=== PATIENT | male | born 1940 | race Caucasian/White ===

== ENCOUNTER 2017-03-03 00:25 | Day surgery (SDC) | payer MEDICARE, OTHER ==
[2017-03-03] VITALS (12 sets, daily range): BP systolic 105–129; BP diastolic 48–67; PULSE 51–67; RESP 14–16; O2SAT 94–99
[~2017-03-03 00:25] MED LIST: ACET325T51 PO; ASPI-973 PO; ATOR80TA PO; CARV6.252 PO; CHOL10008 PO; CLOP75TA3 PO; ETAN50PE SQ; HYDR-4003 PO; ISOS30TA4 PO; LEVE250T4 PO; MIRT15TA6 PO; NITR0.4T6 SL; PANT40TA3 PO; TAMS0.4C98 PO
[2017-03-03 10:24] LABS: BASOPHILS % (AUTO) 0.4 % (0-3); EOSINOPHILS % (AUTO) 6.1 % (0-5); MONOCYTES % (AUTO) 15.5 % (4-12); Mean Corpuscular Hemoglobin 30.7 pg (27.0-35.0); Mean Corpuscular Volume 93.4 fL (81-100); NEUTROPHILS % (AUTO) 33.7 % (40-74); Platelet Count 193 bil/L (150-400)
[2017-03-03] MEDS ORDERED: Heparin 1,000 Units/500 mL NS Premix IV ONE (10:37)
[2017-03-03] MEDS ORDERED: Heparin 10,000 Unit/1,000 mL NS Premix IV ONE (10:37)
[2017-03-03 10:39] LABS: INR 1.02 ratio
--- NOTE | 2017-03-03 10:51 | NUR ---
0930 admit note: Patient ambulates into department. 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 IV's X 2 started and labs drawn. He is prepped for procedure.
[2017-03-03] MEDS ORDERED: diphenhydrAMINE 50 mg Capsule PO ONE ×2 (11:17→11:20)
[2017-03-03] MEDS ORDERED: Hydrocortisone 50 mg/mL 2 mL Inj ONE (11:17)
[2017-03-03] MEDS ORDERED: Hydrocortisone 50 mg/mL 2 mL Inj IVPUSH ONE (11:20)
[2017-03-03] MEDS ORDERED: fentaNYL-PF 50 mCg/mL 2 mL Inj ONE ×2 (11:59→12:39)
[2017-03-03] MEDS ORDERED: hydrALAZINE 20 mg/mL Inj ONE (12:04)
[2017-03-03] MEDS ORDERED: Heparin 1,000 Unit/mL 10 mL Inj ONE (12:41)
[2017-03-03] MEDS ORDERED: 0.9% Sodium Chloride 250 ML IV PRN (13:51)
[2017-03-03] MEDS ORDERED: 0.9% Sodium Chloride 1,000 ML IV PRN (13:51)
[2017-03-03] MEDS ORDERED: HYDROcodone-APAP 5-325 mg Tablet PO PRN (13:55)
[2017-03-03] MEDS ORDERED: Atropine 1 mg/10 mL (Code) Syringe IVPUSH PRN (13:55)
[2017-03-03] MEDS ORDERED: Ondansetron 2 mg/mL 2 mL Inj IVPUSH PRN (13:55)
--- NOTE | 2017-03-03 14:32 | NUR ---
1400 post cardiac cath: Patient returns from [employer]. He is alert and denies pain. R groin site is soft and dry and L groin site has sheath in place which will be DC'd by [employer]. Monitor displays NSR.
--- NOTE | 2017-03-03 16:02 | CS94 ---
[address] [address] DIAGNOSTIC CARDIAC CATHETERIZATION PATIENT: BEATRIZ JONES : 1940 MR#: [id number] ADMIT: 03/03/2017 JOB ID: [id number] SERVICE DATE: 03/03/2017 PROCEDURE: 1. Root angiography. 2. Selective left and right coronary angiography. 3. Graft angiography. a. FOX to LAD. b. Saphenous vein to RPDA and saphenous vein graft to the ramus intermedius. CLINICAL INDICATION: The patient has a known history of coronary artery disease status post bypass surgery x2. Has been experiencing symptoms of exertional angina for the last several months. The patient was being optimized with medical therapy and including antianginal and antiplatelet therapy. Despite that the patient was having anginal chest pains both in resting and exertional with increasing frequency and severity. Therefore, pharmacological stress test was performed which demonstrates ischemia in the inferior and lateral wall. Therefore, the patient was advised coronary angiography to study the extent and severity of the coronary artery disease. CONSENT: The patient was explained the risks, benefits and alternatives of the procedure. Informed signed consent was obtained and placed in the chart. DESCRIPTION OF PROCEDURE: The patient was brought to the cath laboratory and placed on the cath table. Both groins were prepped and draped in the usual sterile manner. 1% lidocaine was infiltrated. Using a modified Seldinger technique, a 25 cm sheath was placed in the right femoral artery without any difficulty. During the middle of the procedure, I had difficulty advancing the catheters. Therefore, left femoral artery was accessed using a micropuncture needle in a standard manner, long 55 cm IV sheath was used. After the completion of the procedure, the manual pressure was applied on both groins. No hematoma was noted. The patient was taken to the cath laboratory in stable condition. Total fluoro time was 26 minutes and total contrast used 160 cc. PROCEDURE: Catheters. An FL-4 catheter was used to engage the left main coronary artery. Multiple views of left coronary artery were obtained in multiple projections. An FR-4 catheter was used to engage the right coronary artery. Multiple views of the right coronary artery were obtained in multiple projections. The FR-4 catheter was used to engage the saphenous vein graft to right PDA. Graft angiography was performed. Subsequently, a root angiography was performed using a pigtail catheter in the left anterior oblique view at 20 cc/second. Total contrast used 40 cc. Using the standard procedure, FR-4 catheter was used to engage the right coronary artery and subsequently the catheter was then advanced into the tortuous left subclavian artery. The step over catheter could not be advanced through the tip of the FOX. However, given tortuous course of the subclavian FOX to LAD graft, angiography was performed in both left anterior oblique and right anterior oblique views. HEMODYNAMICS: The left ventricular end-diastolic pressure was 18-21 mmHg. There is [id number] aortic regurgitation noted. Wwdqrkhf-xr-[id number] aortic regurgitation noted in the root angiography. No root dilatation noted. CORONARY ANGIOGRAPHY: The left main coronary artery is a short segment which trifurcates into the LAD, ramus intermedius and left circumflex coronary artery. On standard left coronary angiography, the left anterior descending artery and ramus intermedius artery was not visualized. The left circumflex demonstrates a stent in the proximal mid and distal segments. Distal to the left circumflex is widely patent. Distal to the stent there is an eccentric plaque noted with a 60%- 70% stenosis noted. It continues as an obtuse marginal branch. There is a high obtuse marginal branch which has a high-grade stenosis at the ostium with heavy calcification not amenable to angioplasty. The right coronary artery demonstrates an ostial high-grade stenosis with diffuse narrowing of the proximal mid and distal RCA. The RPDA is not well visualized and posterolateral branch is not well visualized. Focal high-grade stenosis noted in the mid RCA. Graft angiography: The saphenous vein graft to RPDA is totally occluded. Saphenous vein graft to ramus intermedius is totally occluded. The FOX to LAD graft was visualized by placing the catheter in the proximal left subclavian artery. The FOX was widely patent. The anastomosis to the LAD is widely patent. Both antegrade and retrograde filling of the LAD is identified. Filling of the ramus and proximal LAD is noted on retrograde filling. IMPRESSION: 1. Severe three-vessel coronary artery disease. 2. Completely occluded left anterior descending and ramus intermedius. 3. High-grade stenosis noted in the proximal mid right coronary artery. 4. Left circumflex has an eccentric 60%-70% stenosis. 5. SVG graft to RPD and Ramus are completely occluded. 6. Patent FOX graft to LAD. Graft pedicle is tortuous. 7. Moderate aortic regurgitation. MTDD
--- NOTE | 2017-03-03 19:12 | NUR ---
Care assumed/Recovery/Discharge Care assumed at 1700. Bilateral groins stable. VSS. Denies pain. Taking po well. Voided about 1630 per urinal per report. at bedside. Bedrest complete at 1830. Up in bernabe without change in groins. Discharge instructions given, see sheets. Pt. and verbalize understanding. IVs discontinued intact. Discharged ambulatory with all belongings in no distress at 1855.
== END 2017-03-03 23:59 | disposition home or self-care (01) ==
LOC: SOUO 00:25
PROVIDERS: ATTEND Internal Medicine Cardiovascular Disease
DX: I25.118 Atherosclerotic heart disease of native coronary artery with other forms of angina pectoris (principal); I25.718 Atherosclerosis of autologous vein coronary artery bypass graft(s) with other forms of angina pectoris; I35.1 Nonrheumatic aortic (valve) insufficiency; I25.82 Chronic total occlusion of coronary artery; Z95.1 Presence of aortocoronary bypass graft; Z95.5 Presence of coronary angioplasty implant and graft; I10 Essential (primary) hypertension; E78.5 Hyperlipidemia, unspecified; I73.9 Peripheral vascular disease, unspecified; I25.2 Old myocardial infarction; Z79.82 Long term (current) use of aspirin; Z79.02 Long term (current) use of antithrombotics/antiplatelets
CPT/HCPCS: 36415; 80048; 85025; 85610; 93005; 93459; 93567; 99152; 99153; C1766; C1769; J0360; J1644; J1720; J2250; J3010; Q9967